=== PATIENT | female | born 2000 | race African-American/Black ===

== ENCOUNTER 2020-07-12 20:53 | Emergency (ER) | payer BC ==
[~2020-07-12] VITALS: Ht 160 cm; Wt 47.6 kg
[2020-07-12] MEDS ORDERED: ACETAMINOPHEN 325 MG TAB PO ONE ×2 (21:15→21:30)
[2020-07-12] MEDS ORDERED: IBUPROFEN IB200 MG PO (21:16)
[2020-07-12] MEDS ORDERED: ACETAMINOPHEN500 MG PO (21:16)
[2020-07-12] MEDS ORDERED: DIPHENHYDRAMINE25 MG PO (21:16)
[2020-07-12] MEDS ORDERED: ACETAMINOPHEN 325 MG TAB ONE (21:28)
== END 2020-07-12 21:57 | disposition home or self-care (01) ==
LOC: FSED 21:30
DX: R50.9 Fever, unspecified (principal); B34.9 Viral infection, unspecified; R11.0 Nausea
CPT/HCPCS: 99283